=== PATIENT | female | born 2000 | race Caucasian/White ===

== ENCOUNTER 2024-06-26 22:04 | Emergency (ER) | payer BC ==
[2024-06-26] MEDS ORDERED: Ketorolac Tromethamine 30 MG (1 mL) VIAL ONE (22:22)
[2024-06-26] MEDS ORDERED: Acetaminophen 500 MG TAB ONE (22:22)
== END 2024-06-26 22:55 | disposition home or self-care (01) ==
LOC: MADERS 22:04
DX: J06.9 Acute upper respiratory infection, unspecified (principal)
CPT/HCPCS: 87081; 87430; 96372; 99283; J1885

== ENCOUNTER 2025-04-14 13:38 | Emergency (ER) | payer BC ==
[2025-04-14] MEDS ORDERED: Ibuprofen 800 MG TAB ONE (15:24)
== END 2025-04-14 15:54 | disposition home or self-care (01) ==
LOC: MADERS 13:38
DX: S00.31XA Abrasion of nose, initial encounter (principal); E66.9 Obesity, unspecified; W22.8XXA Striking against or struck by other objects, initial encounter
CPT/HCPCS: 99283